=== PATIENT | female | born 1965 | race Caucasian/White ===

== ENCOUNTER 2019-09-01 15:02 | Emergency (ER) | payer BC ==
[~2019-09-01] VITALS: Ht 172.7 cm; Wt 95.0 kg
[2019-09-01 15:18] VITALS: BP 140/71
--- NOTE | 2019-09-01 15:28 | NUR ---
[facility]IB [facility] BILAT LEG WEAKNES AND TINGLING STARTED 1 HOUR AGO AO4 EQUAL ROM AND STRENGTH PT HAS SHAKES IN THE LOWER LEG WITH GOOD EQUAL STRENGTH DENIES DIFF W UPPER EXTREMITIES
[2019-09-01 15:41] LABS: BASOPHILS # (AUTO) 0.01 x10^3/uL (0-0.1); BASOPHILS % (AUTO) 0 % (0-1); EOSINOPHILS # (AUTO) 0.01 x10^3/uL (0-0.4); EOSINOPHILS % (AUTO) 0 % (1-7); LYMPHOCYTES % (AUTO) 12 % (22-44); MD NO; MEAN CORPUSCULAR HEMOGLOBIN 27.1 pg (27.0-34.8); MEAN CORPUSCULAR HGB CONC 33.4 g/dL (32.4-35.8); MEAN CORPUSCULAR VOLUME 81.3 fL (80-100); MEAN PLATELET VOLUME 8.3 fL (7.4-10.4); MONOCYTES # (AUTO) 0.36 x10^3/uL (0.2-0.8); MONOCYTES % (AUTO) 5 % (2-9); NEUTROPHILS # (AUTO) 6.25 x10^3/uL (1.8-6.8); NEUTROPHILS % (AUTO) 83 % (42-75); PLATELET COUNT 273 x10^3/uL (130-400); RED BLOOD COUNT 4.94 x10^6/uL (3.82-5.3); RED CELL DISTRIBUTION WIDTH 15.2 % (9.6-15.2)
[2019-09-01 15:53] LABS: ALBUMIN 3.9 g/dL (3.4-5.0); ANION GAP 9 mmol/L (5-15); CALCIUM 9.4 mg/dL (8.5-10.1); CHLORIDE 106 mmol/L (98-107); CREATININE 1.15 mg/dL (0.55-1.02)
[2019-09-01 15:56] LABS: CREATINE KINASE, TOTAL 148 U/L (26-192)
== END 2019-09-01 17:37 | disposition home or self-care (01) ==
LOC: ED 16:02
DX: R20.2 Paresthesia of skin (principal)
CPT/HCPCS: 36415; 80048; 82040; 82550; 85025; 99283